=== PATIENT | female | born 1950 | race Caucasian/White ===

== ENCOUNTER 2018-01-09 22:20 | Emergency (ER) | payer MEDICARE, OTHER ==
[~2018-01-09] VITALS: Ht 162.6 cm; Wt 109.9 kg
[2018-01-09 22:48] VITALS: BP 202/89; PULSE 83; RESP 18; TEMP 98.4; O2SAT 95
[2018-01-10 04:28] VITALS: BP 186/70; PULSE 66; RESP 18; O2SAT 97
--- NOTE | 2018-01-10 04:50 | PD ---
HPI Chief Complaint: Hypertension Time Seen by Provider: 04:51 Travel History International Travel<30 days: No Contact w/Intl Traveler<30days: No Traveled to known affect area: No History of Present Illness HPI 67-year-old female presents to the emergency department for complaint of hypertension with elevation of blood pressure and headache. Symptoms have been present for 5 days. Patient reports headache is mild 1/10 intensity. Patient is taken no medications for symptoms including acetaminophen or ibuprofen. Patient denies taking any blood thinning medications. Patient denies any injury. Patient's had no sinus pressure drainage or febrile illness. Headache is not sudden onset thunderclap or worst ever. Patient denies any nausea vomiting visual disturbance change in speech or balance also denies any upper extremity or lower extremity numbness tingling or weakness. Patient denies any chest pain palpitations shortness of breath sweats referred neck child back shoulder arm pain or abdominal pain. Patient states she has been taking her medication as prescribed. Patient also has history of dyslipidemia. Patient denies tobacco use. Patient is visiting from out of town. [facility] Past Medical History Narrative Medical Hypertension dyslipidemia atrial fibrillation; cardiac ablation; no tobacco use ; nursing notes reviewed Atrial Fibrillation: Yes (ABLATION) High Cholesterol: Yes Diminished Hearing: No Hypertension: Yes Tetanus Vaccination: > 5 Years Influenza Vaccination: No ?: Not Menopausal: Yes Past Surgical History Cardiac Surgery: Yes (ABLATION) Social History Alcohol Use: No Tobacco Use: No Substance Use: No Allergies-Medications (Allergen,Severity, Reaction): Coded Allergies: No Known Allergies (Unverified , 01/09/18) Reported Meds & Prescriptions Reported Meds & Active Scripts Active Reported Metoprolol Succinate ER 24 HR (Metoprolol Succinate) 50 Mg Tab 50 Mg PO DAILY Atorvastatin (Atorvastatin Calcium) 20 Mg Tab 20 Mg PO HS Review of Systems Except as stated in HPI: all other systems reviewed are Neg Physical Exam Narrative GENERAL: Well-developed well-nourished female no acute distress no respiratory distress, GCS 15 SKIN: Warm and dry. HEAD: Atraumatic. Normocephalic. EYES: Pupils equal and round. No scleral icterus. No injection or drainage. ENT: No nasal bleeding or discharge. Mucous membranes pink and moist. NECK: Trachea midline. No JVD. CARDIOVASCULAR: Regular rate and rhythm. RESPIRATORY: No accessory muscle use. Clear to auscultation. Breath sounds equal bilaterally. GASTROINTESTINAL: Abdomen soft, non-tender, nondistended. Hepatic and splenic margins not palpable. MUSCULOSKELETAL: Extremities without clubbing, cyanosis, or edema. No obvious deformities. NEUROLOGICAL: Awake and alert. No obvious cranial nerve deficits. Motor grossly within normal limits. Five out of 5 muscle strength in the arms and legs. No pronator drift. No limb ataxia. Sensory exam is grossly intact. Normal speech. PSYCHIATRIC: Appropriate mood and affect; insight and judgment normal. Data Data Last Documented VS Vital Signs Date Time Temp Pulse Resp B/P (MAP) Pulse Ox O2 Delivery O2 Flow Rate FiO2 01/10/18 07:33 87 16 148/72 (97) 100 01/10/18 06:57 Room Air 01/09/18 22:48 98.4 Orders Orders Complete Blood Count With Diff (01/10/18 04:51) Basic Metabolic Panel (Bmp) (01/10/18 04:51) Ct Brain W/O Iv Contrast(Rout) (01/10/18 04:51) Ecg Monitoring (01/10/18 04:51) Iv Access Insert/Monitor (01/10/18 04:51) Oximetry (01/10/18 04:51) Sodium Chloride 0.9% Flush (Ns Flush) (01/10/18 05:00) Electrocardiogram (01/10/18 ) Troponin I (01/10/18 04:51) Labetalol Inj (Trandate Inj) (01/10/18 05:00) Ed Discharge Order (01/10/18 07:21) Labs Laboratory Tests Test 01/10/18 05:20 White Blood Count 8.2 TH/MM3 Red Blood Count 4.76 MIL/MM3 Hemoglobin 13.4 GM/DL Hematocrit 41.0 % Mean Corpuscular Volume 86.1 FL Mean Corpuscular Hemoglobin 28.1 PG Mean Corpuscular Hemoglobin Concent 32.7 % Red Cell Distribution Width 12.9 % Platelet Count 174 TH/MM3 Mean Platelet Volume 9.6 FL Neutrophils (%) (Auto) 56.7 % Lymphocytes (%) (Auto) 35.2 % Monocytes (%) (Auto) 3.8 % Eosinophils (%) (Auto) 3.5 % Basophils (%) (Auto) 0.8 % Neutrophils # (Auto) 4.6 TH/MM3 Lymphocytes # (Auto) 2.9 TH/MM3 Monocytes # (Auto) 0.3 TH/MM3 Eosinophils # (Auto) 0.3 TH/MM3 Basophils # (Auto) 0.1 TH/MM3 CBC Comment DIFF FINAL Differential Comment Blood Urea Nitrogen 13 MG/DL Creatinine 0.77 MG/DL Random Glucose 108 MG/DL Calcium Level 8.7 MG/DL Sodium Level 140 MEQ/L Potassium Level 3.8 MEQ/L Chloride Level 105 MEQ/L Carbon Dioxide Level 28.0 MEQ/L Anion Gap 7 MEQ/L Estimat Glomerular Filtration Rate 75 ML/MIN Troponin I LESS THAN 0.02 NG/ML MDM Medical Decision Making Medical Screen Exam Complete: Yes Emergency Medical Condition: Yes Medical Record Reviewed: Yes Interpretation(s) EKG: Normal sinus rhythm rate [address] elevation injury pattern or ectopy nonspecific T-wave abnormality Last Impressions Head CT 01/10/18 0451 Signed Impressions: Service Date/Time: Wednesday, January 10, 2018 05:27 - CONCLUSION: 1. Area of dense tubular-like clcification along the right suprasellar region. This could be related to a vascular malformation. This could be further evaluated with MRI imaging with and without contrast an outpatient basis. 2. No acute hemorrhage, mass or infarction. Ángel Ayala MD CBC & BMP Diagram 01/10/18 05:20 Calcium Level 8.7 Differential Diagnosis Cephalgia, uncontrolled hypertension, sinusitis, ICH, mass Narrative Course Patient placed on child monitor with continuous pulse oximetry specimens collected and sent for resulting EKG performed reveals no acute injury pattern change and CT imaging ordered Patient resting comfortably due to persistent elevated blood pressure patient administered a one-time dose of labetalol 20 mg IV as she takes metoprolol on a regular basis. Patient with good response to labetalol patient monitored closely as blood pressure did drop fairly markedly but remained within normal range and patient remained asymptomatic and subsequently blood pressure started to normalize and patient is able to ambulate without difficulty to the bathroom no dizziness no lightheadedness no shortness of breath no ataxia no chest pain no palpitations no sweats no nausea or vomiting. Patient reports that she feels markedly improved is desirous of being discharged home. Patient was informed of imaging results including recommendation for outpatient MRI of the brain with and without contrast this is related to the patient patient understands patient was also provided with prescription for as needed clonidine for blood pressure greater than 180/95. Diagnosis Primary Impression: Hypertension Qualified Codes: I10 - Essential (primary) hypertension Additional Impressions: Cephalgia Qualified Codes: R51 - Headache Vascular malformation Referrals: Primary Care Physician call for appointment Patient Instructions: General Instructions Additional Instructions: Increase fluid hydration Continue antihypertensive medications as prescribed Follow-up with your primary care provider on Friday; regarding blood pressure medication adjustment as well as follow-up of vascular malformation identified on CT with MRI brain with and without contrast as an outpatient Return to the emergency department for any concerns or change in condition Med/Other Pt SpecificInfo: Prescription(s) given Disposition: DISCHARGE HOME Condition: Stable Kasandra [place] MD Jan 10, 2018 04:50
[2018-01-10] MEDS ORDERED: SODIUM CHLORIDE 0.9% FLUSH 10 ML FLUSH IVF PRN (05:00)
[2018-01-10] MEDS ORDERED: LABETALOL HCL 100 MG/20 ML VIAL IV PUSH ONE (05:00)
[2018-01-10 05:28] VITALS: BP 133/47; PULSE 64; RESP 18; O2SAT 95
[2018-01-10 05:31] LABS: AUTOMATED NEUTROPHIL # 4.6 TH/MM3 (1.8-7.7); BASOPHIL # 0.1 TH/MM3 (0-0.2); BASOPHIL % 0.8 % (0.0-2.0); EOSINOPHIL # 0.3 TH/MM3 (0-0.4); EOSINOPHIL % 3.5 % (0.0-4.0); HEMOGLOBIN 13.4 GM/DL (11.6-15.3); LYMPH % 35.2 % (9.0-44.0); LYMPHOCYTE # 2.9 TH/MM3 (1.0-4.8); MEAN CELL VOLUME 86.1 FL (80.0-100.0); MEAN CORPUSCULAR HEMOGLOBIN 28.1 PG (27.0-34.0); MEAN CORPUSCULAR HGB CONC 32.7 % (32.0-36.0); MEAN PLATELET VOLUME 9.6 FL (7.0-11.0); MONO % 3.8 % (0.0-8.0); MONOCYTE # 0.3 TH/MM3 (0-0.9); NEUT % 56.7 % (16.0-70.0); PLATELET COUNT 174 TH/MM3 (150-450); RED BLOOD COUNT 4.76 MIL/MM3 (4.00-5.30); RED CELL DISTRIBUTION WIDTH 12.9 % (11.6-17.2); WHITE BLOOD COUNT 8.2 TH/MM3 (4.0-11.0)
[2018-01-10 05:37] LABS: CHLORIDE 105 MEQ/L (98-107); SODIUM (NA) 140 MEQ/L (136-145)
[2018-01-10 05:40] LABS: CALCIUM 8.7 MG/DL (8.5-10.1); GLUCOSE,RANDOM 108 MG/DL (74-106)
[2018-01-10 05:41] LABS: BLOOD UREA NITROGEN 13 MG/DL (7-18)
[2018-01-10 05:44] LABS: CREATININE 0.77 MG/DL (0.50-1.00); GLOMERULAR FILTRATION RATE 75 ML/MIN (>89)
[2018-01-10 05:48] LABS: TROPONIN I LESS THAN 0.02 NG/ML (0.02-0.05)
--- NOTE | 2018-01-10 05:53 | RADRPT ---
EXAM DATE/TIME: 01/10/2018 05:27 [facility] COMPARISON: No previous studies available for comparison. INDICATIONS : Headaches with high blood pressure. RADIATION DOSE: 61.37 CTDIvol (mGy) MEDICAL HISTORY : Cerebrovascular disease. Hypertension. SURGICAL HISTORY : None. ENCOUNTER: Initial ACUITY: 1 day PAIN SCALE: 2/10 LOCATION: cranial TECHNIQUE: Multiple contiguous axial images were obtained of the head. Using automated exposure control and adj ustment of the mA and/or kV according to patient size, radiation dose was kept as low as reasonably a chievable to obtain optimal diagnostic quality images. DICOM format image data is available electro nically for review and comparison. FINDINGS: CEREBRUM: The ventricles are normal for age. No evidence of midline shift, mass lesion, hemorrhage or acute in farction. No extra-axial fluid collections are seen. There is an area of tubular-like calcification along the right suprasellar region. POSTERIOR FOSSA: The cerebellum and brainstem are intact. The 4th ventricle is midline. The cerebellopontine angle i s unremarkable. EXTRACRANIAL: The visualized portion of the orbits is intact. SKULL: The calvaria is intact. No evidence of skull fracture. CONCLUSION: 1. Area of dense tubular-like clcification along the right suprasellar region. This could be related to a vascular malformation. This could be further evaluated with MRI imaging with and without contras t an outpatient basis. 2. No acute hemorrhage, mass or infarction. Ángel Ayala MD on January 10, 2018 at 5:48 Board Certified Radiologist. This report was verified electronically.
[2018-01-10 06:15] VITALS: BP 116/47; PULSE 67; RESP 18; O2SAT 95
[2018-01-10] MEDS ORDERED: CLON0.1T PO (06:51)
[2018-01-10 06:57] VITALS: BP 123/48; PULSE 67; RESP 18; O2SAT 96
[2018-01-10] MEDS ORDERED: METO1TAB9 PO (06:58)
[2018-01-10] MEDS ORDERED: ATOR20TA15 PO (06:58)
[2018-01-10 07:33] VITALS: BP 148/72
--- NOTE | 2018-01-10 19:11 | EKG ---
Date Performed: 01/10/2018 Time Performed: 05:41:20 PTAGE: 67 years EKG: Sinus rhythm NONSPECIFIC T-WAVE ABNORMALITY BORDERLINE ECG NO PREVIOUS TRACING DOCTOR: Louise Sparrow Interpretating Date/Time 01/10/2018 19:08:43
== END 2018-01-10 07:35 | disposition home or self-care (01) ==
LOC: PHED 22:20
DX: I10 Essential (primary) hypertension (principal); R51 Headache; R93.0 Abnormal findings on diagnostic imaging of skull and head, not elsewhere classified; R94.31 Abnormal electrocardiogram [ECG] [EKG]; E78.5 Hyperlipidemia, unspecified; I48.91 Unspecified atrial fibrillation
CPT/HCPCS: 70450; 80048; 84484; 85025; 93005; 96374